=== PATIENT | female | born 1980 | race Caucasian/White ===

== ENCOUNTER 2023-03-24 11:11 | Observation (INO) | payer OTHER ==
[2023-03-24] MEDS ORDERED: LACTATED RINGERS SOLUTION 1000 ML INFUS.BAG IV ONE (11:25)
[2023-03-24 12:01] VITALS: BMI 20.2
[2023-03-24 12:07] LABS: BASO % 0.9 % (0-2.0); HEMATOCRIT 30.5 % (32.4-45.2); LYMPH % 26.6 % (8-40); MCH 27.1 pg (25.7-33.7); MCHC 32.7 g/dl (32.0-36.0); MEAN CELL VOLUME 82.7 fl (80-96); MEAN PLT VOLUME 8.7 fl (7.5-11.1); MONO % 10.2 % (3.8-10.2); NEUT % 62.3 % (42.8-82.8); PLATELET COUNT 327 10^3/uL (134-434); RBC 3.68 M/mm3 (3.60-5.2); RDW 15.8 % (11.6-15.6); WHITE BLOOD COUNT 5.7 K/mm3 (4.0-10.0)
[2023-03-24 12:11] LABS: INR 1.06 (0.83-1.09); PROTHROMBIN TIME (PATIENT) 12.3 SEC (9.7-13.0)
[2023-03-24 12:14] LABS: ACTIVATED PTT 25.8 SECONDS (25.2-36.5)
[2023-03-24 12:15] LABS: POTASSIUM 4.9 mmol/L (3.5-5.1)
[2023-03-24] MEDS ORDERED: ACETAMINOPHEN 1000 MG/100 ML BAG IVPB ONE (12:15)
[2023-03-24] MEDS ORDERED: METOCLOPRAMIDE HCL INJECTION 10 MG/2 ML VIAL IVPUSH ONE (12:16)
[2023-03-24 12:17] LABS: ALBUMIN 3.6 g/dl (3.4-5.0); BLOOD UREA NITROGEN 10.1 mg/dL (7-18); CALCIUM 9.3 mg/dL (8.5-10.1); MAGNESIUM 2.2 mg/dL (1.8-2.4)
[2023-03-24 12:20] LABS: CREATININE 0.6 mg/dL (0.55-1.3)
[2023-03-24 12:21] LABS: BILIRUBIN,TOTAL 0.3 mg/dL (0.2-1); TOT PROT 7.3 g/dl (6.4-8.2)
[2023-03-24] MEDS ORDERED: ACETAMINOPHEN INJECTION 100 ML IVPB ONE (12:31)
[2023-03-24] MEDS ORDERED: METOCLOPRAMIDE HCL INJECTION 10 MG/2 ML VIAL ONE (12:31)
[2023-03-24] MEDS ORDERED: SODIUM CHLORIDE 0.9% 500 ML INFUS.BAG IV ONE ×2 (12:34→12:37)
[2023-03-24 15:35] LABS: URINE APPEARANCE CLEAR; URINE BILIRUBIN NEGATIVE (NEGATIVE); URINE COLOR YELLOW; URINE GLUCOSE (UA) TRACE (NEGATIVE); URINE KETONE NEGATIVE (NEGATIVE); URINE LEUK ESTERASE NEGATIVE (NEGATIVE); URINE NITRITE NEGATIVE (NEGATIVE); URINE PROTEIN NEGATIVE (NEGATIVE); URINE UROBILINOGEN 0.2 mg/dL (0.2-1.0)
[2023-03-24] MEDS ORDERED: ACETAMINOPHEN 325 MG TABLET (FP) ONE (20:19)
[2023-03-24] MEDS: ACETAMINOPHEN 325 MG TABLET (FP) PO PRN (20:22)
[2023-03-25] MEDS: HEPARIN NA (PORCINE) 5,000 UNITS/ML 1ML VIAL SQ SCH ×3 (00:20→22:21)
[2023-03-25 06:26] LABS: BASO % 0.7 % (0-2.0); EOS % 0.3 % (0-4.5); HEMATOCRIT 28.1 % (32.4-45.2); LYMPH % 25.7 % (8-40); MCH 27.1 pg (25.7-33.7); MCHC 32.1 g/dl (32.0-36.0); MEAN CELL VOLUME 84.5 fl (80-96); MEAN PLT VOLUME 9.3 fl (7.5-11.1); MONO % 7.4 % (3.8-10.2); NEUT % 65.9 % (42.8-82.8); PLATELET COUNT 281 10^3/uL (134-434); RBC 3.32 M/mm3 (3.60-5.2); RDW 15.3 % (11.6-15.6); WHITE BLOOD COUNT 5.9 K/mm3 (4.0-10.0)
[2023-03-25 06:48] LABS: POTASSIUM 4.1 mmol/L (3.5-5.1)
[2023-03-25 06:50] LABS: BLOOD UREA NITROGEN 9.7 mg/dL (7-18); CALCIUM 8.8 mg/dL (8.5-10.1)
[2023-03-25 06:54] LABS: CREATININE 0.5 mg/dL (0.55-1.3)
[2023-03-25] MEDS ORDERED: MULTIVITAMINS (DAILY MVI) TABLET (FP) ONE (08:32)
[2023-03-25] MEDS ORDERED: FOLIC ACID 1 MG TABLET (FP) ONE (08:32)
[2023-03-25] MEDS ORDERED: THIAMINE HCL 100 MG TABLET (FP) ONE (08:32)
[2023-03-25] MEDS ORDERED: HEPARIN NA (PORCINE) 5,000 UNITS/ML 1ML VIAL ONE (08:32)
[2023-03-25] MEDS: FOLIC ACID 1 MG TABLET (FP) PO SCH (08:52)
[2023-03-25] MEDS: MULTIVITAMINS (DAILY MVI) TABLET (FP) PO SCH (08:52)
[2023-03-25] MEDS: THIAMINE HCL 100 MG TABLET (FP) PO SCH (08:53)
[2023-03-25] MEDS: ACETAMINOPHEN 325 MG TABLET (FP) PO PRN (14:26)
[2023-03-25] MEDS: chlordiazePOXIDE HCL 25 MG CAPSULE PO PRN (14:27)
[2023-03-26 08:15] LABS: HEMATOCRIT 28.2 % (32.4-45.2); MCH 27.1 pg (25.7-33.7); MCHC 32.1 g/dl (32.0-36.0); MEAN CELL VOLUME 84.6 fl (80-96); MEAN PLT VOLUME 9.6 fl (7.5-11.1); PLATELET COUNT 267 10^3/uL (134-434); RBC 3.33 M/mm3 (3.60-5.2); RDW 15.6 % (11.6-15.6); WHITE BLOOD COUNT 4.6 K/mm3 (4.0-10.0)
[2023-03-26 08:39] LABS: POTASSIUM 3.9 mmol/L (3.5-5.1)
[2023-03-26 08:45] LABS: BLOOD UREA NITROGEN 11.1 mg/dL (7-18)
[2023-03-26 08:48] LABS: CREATININE 0.4 mg/dL (0.55-1.3)
[2023-03-26] MEDS: HEPARIN NA (PORCINE) 5,000 UNITS/ML 1ML VIAL SQ SCH (09:19)
[2023-03-26] MEDS: MULTIVITAMINS (DAILY MVI) TABLET (FP) PO SCH (09:19)
[2023-03-26] MEDS: THIAMINE HCL 100 MG TABLET (FP) PO SCH (09:19)
[2023-03-26] MEDS: FOLIC ACID 1 MG TABLET (FP) PO SCH (09:19)
[2023-03-26] MEDS: chlordiazePOXIDE HCL 25 MG CAPSULE PO PRN (12:06)
[2023-03-26] MEDS ORDERED: LACTATED RINGERS SOLUTION 1,000 ML/1,000 ML INFUS.BAG IV SCH (15:30)
[2023-03-26 15:31] VITALS: BP 100/59; PULSE 73; RESP 20; TEMP 97.9
[2023-03-26] MEDS ORDERED: ACETAMINOPHEN 325 MG TABLET (FP) PO SCH (17:00)
== END 2023-03-26 18:19 | disposition other institution (70) ==
LOC: JER 11:11 → JERBED 18:44 → J4W 03-25 09:02
PROVIDERS: ADMIT Internal Medicine; ATTEND Psychiatry & Neurology Pain Medicine
PROC: 3E033NZ Introduction of Analgesics, Hypnotics, Sedatives into Peripheral Vein, Percutaneous Approach (ICD-10-PCS; principal; 2023-03-24)
PROC: 3E023GC Introduction of Other Therapeutic Substance into Muscle, Percutaneous Approach (ICD-10-PCS; 2023-03-24)
PROC: 3E0337Z Introduction of Electrolytic and Water Balance Substance into Peripheral Vein, Percutaneous Approach (ICD-10-PCS; 2023-03-24)
PROC: 3E033GC Introduction of Other Therapeutic Substance into Peripheral Vein, Percutaneous Approach (ICD-10-PCS; 2023-03-24)
DX: N70.11 Chronic salpingitis (principal); I95.9 Hypotension, unspecified; F10.90 Alcohol use, unspecified, uncomplicated; F14.90 Cocaine use, unspecified, uncomplicated; R55 Syncope and collapse; R07.9 Chest pain, unspecified; K92.9 Disease of digestive system, unspecified; F31.9 Bipolar disorder, unspecified; K76.0 Fatty (change of) liver, not elsewhere classified; Z98.84 Bariatric surgery status; W18.39XA Other fall on same level, initial encounter; Y93.89 Activity, other specified; Y92.239 Unspecified place in hospital as the place of occurrence of the external cause
CPT/HCPCS: 36415; 70450-TC; 71046-TC-FY; 71275-TC; 72125-TC; 74174-TC; 76830-TC; 80048; 80053; 81003; 82962; 83735; 84484; 84703; 85025; 85027; 85379; 85610; 85730; 86850; 86870; 86900; 86901; 86902; 87086; 93005; 93010; 93306-TC; 96361; 96372; 96374; 96375; 99291; G0378; J1644; Q9967